=== PATIENT | female | born 1965 | race Caucasian/White ===

== ENCOUNTER 2019-02-20 13:17 | Outpatient (CLI) | payer BC ==
[2019-02-20] MEDS ORDERED: HYDR50TA13 PO (13:59)
[2019-02-20] MEDS ORDERED: METF500T17 PO (13:59)
[2019-02-20] MEDS ORDERED: LEVO100T5 PO (13:59)
[2019-02-20] MEDS ORDERED: CYAN250013 PO (13:59)
[2019-02-20] MEDS ORDERED: BIOT1TAB2 PO (13:59)
[2019-02-20] MEDS ORDERED: LOSA100T14 PO (13:59)
[2019-02-20] MEDS ORDERED: MULT1TAB60 PO (13:59)
[2019-02-20] MEDS ORDERED: FLUO40CA2 PO (13:59)
[2019-02-20] MEDS ORDERED: GABA300C10 PO (13:59)
[2019-02-20] MEDS ORDERED: ATOR40TA78 PO (13:59)
[2019-02-20] MEDS ORDERED: HYDROCHLOROTH12.5 MG PO (13:59)
[2019-02-20] MEDS ORDERED: BUSP7.5T3 PO (13:59)
[2019-02-20] MEDS ORDERED: CHOL200024 PO (13:59)
[2019-02-20] MEDS ORDERED: ASPI-496 PO (13:59)
[2019-02-20 14:39] LABS: MICROSCOPIC AUTO
[2019-02-20 14:41] LABS: CULTURE INDICATED? NO
[2019-02-20 14:42] LABS: BASOPHILS # (AUTO) 0.03 x10^3/uL (0-0.1); BASOPHILS % (AUTO) 0 % (0-1); EOSINOPHILS # (AUTO) 0.15 x10^3/uL (0-0.4); EOSINOPHILS % (AUTO) 1 % (1-7); LYMPHOCYTES # (AUTO) 2.07 x10^3/uL (1-3.4); LYMPHOCYTES % (AUTO) 19 % (22-44); MD NO; MEAN CORPUSCULAR HEMOGLOBIN 29.7 pg (27.0-34.8); MEAN PLATELET VOLUME 9.7 fL (7.4-10.4); MONOCYTES # (AUTO) 0.59 x10^3/uL (0.2-0.8); MONOCYTES % (AUTO) 5 % (2-9); NEUTROPHILS # (AUTO) 8.34 x10^3/uL (1.8-6.8); NEUTROPHILS % (AUTO) 75 % (42-75); PLATELET COUNT 303 x10^3/uL (130-400); RED BLOOD COUNT 5.22 x10^6/uL (3.82-5.3); RED CELL DISTRIBUTION WIDTH 13.8 % (9.6-15.2)
[2019-02-20 14:49] LABS: ALANINE AMINOTRANSFERASE 37 U/L (12-78); ALBUMIN 3.9 g/dL (3.4-5.0); ANION GAP 4 mmol/L (5-15); CALCIUM 9.3 mg/dL (8.5-10.1); CHLORIDE 108 mmol/L (98-107); CREATININE 0.79 mg/dL (0.55-1.02)
[2019-02-20 14:54] LABS: ALKALINE PHOSPHATASE 78 U/L (45-117); BILIRUBIN,TOTAL 0.3 mg/dL (0.2-1.0); TOTAL PROTEIN 7.8 g/dL (6.4-8.2)
== END 2019-02-20 23:59 | disposition home or self-care (01) ==
LOC: STAR 13:17
PROVIDERS: ATTEND Obstetrics & Gynecology
DX: Z01.818 Encounter for other preprocedural examination (principal); Z87.891 Personal history of nicotine dependence
CPT/HCPCS: 36415; 71046; 80053; 81001; 84702; 85025; 93005

== ENCOUNTER 2019-03-07 09:51 | Day surgery (SDC) | payer BC ==
[~2019-03-07] VITALS: Ht 161.3 cm; Wt 92.2 kg
[~2019-03-07 09:51] MED LIST: ASPI-496 PO; ATOR40TA78 PO; BIOT1TAB2 PO; BUSP7.5T3 PO; CHOL200024 PO; CYAN250013 PO; FLUO40CA2 PO; GABA300C10 PO; HYDR50TA13 PO; HYDROCHLOROTH12.5 MG PO; LEVO100T5 PO; LOSA100T14 PO; METF500T17 PO; MULT1TAB60 PO
[2019-03-07 10:44] VITALS: BP 134/83
[2019-03-07] MEDS ORDERED: LACTATED RINGERS 1,000 ML IV SCH (10:46)
[2019-03-07 10:58] LABS: HCG UR SG 1.022 (1.003-1.030)
[2019-03-07] MEDS ORDERED: GABAPENTIN 300 MG CAPSULE PO ONE (11:00)
[2019-03-07] MEDS ORDERED: ACETAMINOPHEN 500 MG TABLET PO ONE (11:00)
[2019-03-07] MEDS ORDERED: BUPIVACAINE/PF 0.25% ONE (12:56)
[2019-03-07] MEDS ORDERED: FLUORESCEIN SODIUM 500 MG/5 ML ONE (12:56)
[2019-03-07] MEDS ORDERED: EPINEPHRINE 1 MG/ML, 1ML ONE (12:57)
[2019-03-07] MEDS ORDERED: MIDAZOLAM 1 MG/ML, 2ML ONE (13:29)
[2019-03-07] MEDS ORDERED: FENTANYL PF 250 MCG/5ML ONE ×3 (13:29→14:59)
[2019-03-07] MEDS ORDERED: ROCURONIUM 10MG/ML,5ML ONE (13:30)
[2019-03-07] MEDS ORDERED: SUCCINYLCHOLINE 20 MG/ML, 10ML ONE (13:30)
[2019-03-07] MEDS ORDERED: PROPOFOL 10 MG/ML, 20ML ONE (13:30)
[2019-03-07] MEDS ORDERED: SUGAMMADEX 200 MG/2 ML IVPush ONE (13:46)
[2019-03-07] MEDS ORDERED: KETOROLAC 30 MG/1 ML ONE (13:46)
[2019-03-07] MEDS ORDERED: ONDANSETRON 2MG/ML, 2ML ONE (13:46)
[2019-03-07] MEDS ORDERED: DEXAMETHASONE 4 MG/ML, 1ML ONE (13:54)
[2019-03-07] MEDS ORDERED: CEFAZOLIN 1,000 MG ONE (13:54)
[2019-03-07] MEDS ORDERED: HALOPERIDOL 5 MG/ML IV PRN (14:30)
[2019-03-07] MEDS ORDERED: LABETALOL 5MG/ML, 20ML IV PRN (14:30)
[2019-03-07] MEDS ORDERED: DIAZEPAM 5 MG/ML, 2ML IVPush PRN (14:30)
[2019-03-07] MEDS ORDERED: ONDANSETRON 2MG/ML, 2ML IV PRN (14:30)
[2019-03-07] MEDS ORDERED: MEPERIDINE/PF 25MG/ML,1ML IVPush PRN (14:30)
[2019-03-07] MEDS ORDERED: ALBUTEROL SULFATE 2.5 MG/3 ML NPPB PRN (14:30)
[2019-03-07] MEDS ORDERED: MIDAZOLAM 1 MG/ML, 2ML IV PRN (14:30)
[2019-03-07] MEDS ORDERED: PROMETHAZINE 12.5 MG SUPP PR PRN (14:30)
[2019-03-07] MEDS ORDERED: hydrALAzine 20 MG/ML, 1ML IV PRN (14:30)
[2019-03-07] MEDS ORDERED: OXYcodone 5 MG/5 ML ORAL.SOL UDC PO PRN (14:30)
[2019-03-07] MEDS ORDERED: ONDANSETRON ODT 8 MG PO PRN (14:30)
[2019-03-07] MEDS ORDERED: PROMETHAZINE 25 MG/ML, 1ML IV PRN (14:30)
[2019-03-07] MEDS ORDERED: EPHEDRINE 50 MG/ML, 1ML IVPush PRN (14:30)
[2019-03-07] MEDS ORDERED: HYDROmorphone 2 MG/ML, 1ML IVPush PRN (14:30)
[2019-03-07] MEDS: LABETALOL 5 MG/ML SYR. (IV ONLY) IV PRN ×2 (16:33→16:40)
[2019-03-07] MEDS ORDERED: FENTANYL PF 100 MCG/2ML ONE (16:45)
[2019-03-07] MEDS ORDERED: OXYcodone 5 MG/5 ML ORAL.SOL UDC ONE (16:45)
[2019-03-07] MEDS: FENTANYL PF 100 MCG/2ML IV PRN ×2 (16:47→16:54)
== END 2019-03-07 19:00 | disposition home or self-care (01) ==
LOC: OUT 09:51
PROVIDERS: ATTEND Obstetrics & Gynecology
DX: N93.9 Abnormal uterine and vaginal bleeding, unspecified (principal); D25.1 Intramural leiomyoma of uterus; D25.0 Submucous leiomyoma of uterus; N80.0 Endometriosis of uterus; N88.8 Other specified noninflammatory disorders of cervix uteri; E11.9 Type 2 diabetes mellitus without complications; E03.9 Hypothyroidism, unspecified; I10 Essential (primary) hypertension; F32.9 Major depressive disorder, single episode, unspecified; F41.9 Anxiety disorder, unspecified; Z79.82 Long term (current) use of aspirin; Z79.84 Long term (current) use of oral hypoglycemic drugs; Z79.890 Hormone replacement therapy; Z79.899 Other long term (current) drug therapy; Z98.51 Tubal ligation status; Z98.890 Other specified postprocedural states; Z82.3 Family history of stroke; Z83.42 Family history of familial hypercholesterolemia; Z82.49 Family history of ischemic heart disease and other diseases of the circulatory system
CPT/HCPCS: 36415; 58552; 81025; 82962; 86850; 86900; 88307; J0171; J0330; J0690; J1100; J1885; J2250; J2405; J2704; J3010; J3490; J7120